=== PATIENT | male | born 1975 | race Caucasian/White ===

== ENCOUNTER 2022-05-13 16:19 | Emergency (ER) | payer OTHER, SELFPAY ==
[2022-05-13 16:25] VITALS: BP 118/77; PULSE 72; RESP 16; O2SAT 96
--- NOTE | 2022-05-13 16:58 | ECG_ITS ---
[facility] Test Date: 2022-05-13 Pat Name: Junaid Lin Department: Room: Gender: Male [employer]: : 1975 Requested By: Junaid Genao Order Number: [id number] Raiza MD: Ad Grajeda M.D. Measurements Intervals [place] Rate: 69 P: 80 CO: 149 QRS: 74 QRSD: 101 T: 69 QT: 387 QTc: 416 Interpretive Statements SINUS RHYTHM NONSPECIFIC T-WAVE ABNORMALITY No previous ECG available for comparison Electronically Signed On 05-13-2022 19:43:21 CDT by Ad Grajeda M.D. [id number]
[2022-05-13 20:44] LABS: Basophils % 0.5 %; Eosinophils # 0.1 10^3/uL (0.0-0.8); Eosinophils % 1.8 %; Hematocrit 46.7 % (42.0-52.0); Hemoglobin 15.8 g/dL (11.7-16.6); Lymphocytes # 2.9 10^3/uL (0.8-4.8); Lymphocytes % 44.8 %; Mean Corpuscular HGB Conc 33.8 g/dL (30.0-36.0); Mean Corpuscular Hemoglobin 30.7 pg (28.0-34.0); Mean Corpuscular Volume 90.7 fl (80-94); Mean Platelet Volume 11.3 fL (7.4-10.4); Monocytes # 0.6 10^3/uL (0.2-0.9); Monocytes % 8.6 %; Neutrophils # 2.86 10^3/uL (1.8-7.7); Nucleated Red Blood Cells % 0 %; Platelet Count 176 10^3/cmm (130-400); Red Blood Count 5.15 10^6/uL (4.1-5.3); Red Cell Distribution Width 12.6 % (12.1-15.1); White Blood Count 6.5 10^3/uL (4.0-10.0)
[2022-05-13 21:07] LABS: Troponin(5th) Baseline 6 ng/L (0-15)
[2022-05-13 21:23] LABS: Alanine Aminotransferase 59 U/L (0-41); Albumin Level 5.2 g/dL (3.5-5.2); Alkaline Phosphatase 99 U/L (40-130); Anion Gap 16.7 (5-19); Aspartate Amino Transferase 50 U/L (0-40); Blood Urea Nitrogen 10 mg/dL (6-20); Carbon Dioxide 26 mmol/L (22-29); Chloride 99 mmol/L (98-107); Globulin 2.4 g/dL (1.3-4.6); Glomerular Filtration Rate 103.6 mL/min (90-130); Glucose 111 mg/dL (65-115); Lipase 27 U/L (13-60); NT Pro B Type Natriuretic Pept 34 pg/mL (0-125); Osmolality Calculated 284 mOsm/kg (285-295); Potassium 4.7 mmol/L (3.5-5.1); Sodium 137 mmol/L (136-145); Total Protein 7.6 g/dL (6.6-8.7)
== END 2022-05-13 22:04 | disposition left against medical advice (07) ==
PROVIDERS: Emergency Medicine; Emergency Provider Family Medicine
DX: Z53.21 Procedure and treatment not carried out due to patient leaving prior to being seen by health care provider (principal); R20.0 Anesthesia of skin
CPT/HCPCS: 36415; 80053; 83690; 83880; 84484; 85025; 93005